=== PATIENT | female | born 1965 | race Caucasian/White ===

== ENCOUNTER → 2016-11-27 15:06 | Outpatient (CLI) | payer BC | END | disposition home or self-care (01) | LOC: D.MAMMO 11:00 | DX: Z12.31 Encounter for screening mammogram for malignant neoplasm of breast (principal) ==

== ENCOUNTER 2019-02-22 08:00 | Outpatient (CLI) | payer BC | END 2019-02-22 23:59 | disposition home or self-care (01) | LOC: D.MAMMO 08:00 | PROVIDERS: ATTEND Family Medicine | DX: Z12.31 Encounter for screening mammogram for malignant neoplasm of breast (principal) ==

== ENCOUNTER 2020-06-28 08:42 | Day surgery (SDC) | payer BC, OTHER ==
--- NOTE | 2020-06-27 13:00 | NUR ---
CONFIRMED THAT PT WILL BE HERE TOMORROW, NPO STATUS, STOPPED ASA APPROX 10 DAYS AGO, AND THAT SHE HAS A RIDE HOME. PT VERBALIZED UNDERSTANDING.
[~2020-06-28] VITALS: Ht 152.4 cm; Wt 59.1 kg
[2020-06-28 09:21] LABS: BASOPHILS 0.3 % (0-2); EOSINOPHILS 2.7 % (0-7); HEMATOCRIT 38.6 % (36.0-48.0); HEMOGLOBIN 12.3 g/dL (12-16); IMMATURE GRANULOCYTES 0.2 % (0-5); LYMPHOCYTE ABS# 1.58 10x3/uL (1.18-3.74); LYMPHOCYTES 15.9 % (15-50); MCH 29.5 pg (26.0-34.0); MCHC 31.9 g/dL (31.0-37.0); MCV 92.6 fL (80.0-100.0); MEAN PLATELET VOLUME 9.5 fL (7.4-10.4); MONOCYTES 5.9 % (2-11); NEUTROPHIL ABS# 7.45 10x3/uL (1.56-6.13); PLATELET COUNT 659 10x3/uL (130-400); RBC 4.17 10x6/uL (4.00-5.40); RDW 13.5 % (11.5-14.5); WBC 9.9 10x3/uL (4.8-10.8)
[2020-06-28 09:29] LABS: ANION GAP 11.6 mmol/L (8-16); CALCIUM 8.8 mg/dL (8.5-10.1); CARBON DIOXIDE 30.7 mmol/L (21.0-32.0); CREATININE - SERUM 0.9 mg/dL (0.6-1.3); POTASSIUM - SERUM 4.3 mmol/L (3.5-5.1)
[2020-06-28 09:36] LABS: APTT 28.4 SECONDS (22.8-39.4); INR 1.05 (0.85-1.17); PROTIME 12.6 SECONDS (11.6-15.0)
[2020-06-28] MEDS ORDERED: ESTRACE 0.5 MG0.5 MG PO (09:36)
[2020-06-28 09:46] VITALS: BP 141/82; Ht 152.4 cm; Wt 59.1 kg
== END 2020-06-28 14:50 | disposition home or self-care (01) ==
LOC: D.SP 08:42 → D.CT 11:00 → D.SP 14:50
PROVIDERS: Radiology Vascular & Interventional Radiology; ATTEND Internal Medicine Hematology & Oncology
DX: D47.3 Essential (hemorrhagic) thrombocythemia (principal)